=== PATIENT | male | born 1960 | race Caucasian/White ===

== ENCOUNTER 2018-05-05 14:52 | Emergency (ER) | payer OTHER ==
[~2018-05-05] VITALS: Ht 182.9 cm; Wt 94.8 kg
[~2018-05-05 14:52] MED LIST: ASPIR-LOW81 MG PO; CARVEDILOL25 MG PO; CELEBREX 200 M200 M1 PO; CHLORTHALIDONE25 MG PO; CRESTOR10 MG PO; FLOMAX0.4 MG PO; LISINOPRIL-HCT1 EACH PO; LISINOPRIL10 MG PO; LOPRESSOR50 PO; NIASPAN ER 101000 M1 PO; PERCOCET PO
[2018-05-05] MEDS ORDERED: CELEBREX 200 M200 M1 PO (15:37)
[2018-05-05] MEDS ORDERED: CHILDREN'S ASPI81 M1 PO (15:37)
[2018-05-05] MEDS ORDERED: PERCOCET PO (15:37)
[2018-05-05] MEDS ORDERED: CRESTOR20 MG PO (15:38)
[2018-05-05] MEDS ORDERED: AMLODIPINE BESY10 MG PO (15:38)
[2018-05-05 16:20] LABS: ABSOLUTE BASOPHILS 0.1 thou/uL (0.0-0.2); ABSOLUTE EOSINOPHILS 0.2 thou/uL (0.0-0.7); ABSOLUTE LYMPHOCYTES 2.3 thou/uL (0.8-5.3); ABSOLUTE MONOCYTES 0.6 thou/uL (0.0-1.2); BASOPHILS 0.8 %; HEMATOCRIT 38.7 % (42.0-52.0); HEMOGLOBIN 12.3 gm/dL (14.0-18.0); LYMPHOCYTES 22.3 %; MCH 19.9 pg (26.0-34.0); MCHC 31.7 g/dL (28.0-37.0); MCV 62.9 fL (80.0-100.0); MONOCYTES 5.8 %; MPV 8.9 fl. (7.2-11.1); NUCLEATED RBCS 0 /100WBC; PLATELET COUNT* 281 thou/uL (150-400); POLYS 69.1 %; RBC 6.15 mil/uL (4.50-6.00); RDW-CV 16.3 % (10.5-14.5); WBC 10.2 thou/uL (4.0-11.0)
[2018-05-05 16:28] LABS: CALCIUM 9.2 mg/dL (8.5-10.1); CREATININE 0.9 mg/dL (0.6-1.3); POTASSIUM 3.6 mmol/L (3.5-5.1)
[2018-05-05 16:32] LABS: ALBUMIN 3.8 g/dL (3.4-5.0); TOTAL BILIRUBIN 0.4 mg/dL (<0.1-1.0); TOTAL PROTEIN 7.6 g/dL (6.4-8.2)
[2018-05-05] MEDS ORDERED: ACETAMINOPHEN-1 EAC1 PO (17:09)
[2018-05-05] MEDS ORDERED: BACTROBAN NASAL1 GM NASAL (17:09)
[2018-05-05] MEDS ORDERED: CLEOCIN HCL150 MG PO (17:09)
[2018-05-05 17:52] VITALS: BP 126/76
[2018-05-05 17:58] LABS: ANISOCYTOSIS 1+; OVALOCYTES 1+; PLATELET ESTIMATE ADEQUATE
[2018-05-05 17:59] LABS: MICROCYTES 3+
[2018-05-05 18:00] LABS: HYPOCHROMASIA 1+
== END 2018-05-05 17:55 | disposition home or self-care (01) ==
LOC: M.ERS 14:52
PROVIDERS: Physician Assistant
DX: J34.0 Abscess, furuncle and carbuncle of nose (principal); I10 Essential (primary) hypertension; E78.00 Pure hypercholesterolemia, unspecified; F17.210 Nicotine dependence, cigarettes, uncomplicated; Z95.5 Presence of coronary angioplasty implant and graft; Z95.1 Presence of aortocoronary bypass graft